=== PATIENT | male | born 1960 | race Caucasian/White ===

== ENCOUNTER 2022-01-14 09:36 | Emergency (ER) | payer SELFPAY ==
[2022-01-14] VITALS (10 sets, daily range): BP systolic 140–178; BP diastolic 88–122; PULSE 81–95; RESP 18–32; TEMP 36.6; O2SAT 87–98; BMI 22.4
--- NOTE | 2022-01-14 10:33 | ED_ITS ---
Documented by User: JESSIE Bojorquez 01/14/22 11:14 HPI - SOB/Dyspnea General: Chief Complaint: Shortness of Breath/Dyspnea Stated Complaint: Difficulty breathing Time Seen by Provider: 01/14/22 10:13 Source: patient Mode of arrival: ambulatory Limitations: no limitations History of Present Illness: HPI Narrative: Patient is a 61-year-old male here for concerns of dyspnea over the past 2 days or so. Patient tells me several years ago he had a severe case of pneumonia and was told he had permanent lung damage following this infection. Patient was an every day smoker up until a month ago when he quit. He has no known history of COPD. He states dyspnea is worse with any form of exertion. He is not having much of a cough. No other URI-like symptoms. No fevers. MD elicited complaint: shortness of breath Pertinent past history: pneumonia Onset (ago): day(s) Timing: constant Severity: moderate Exacerbating factors: exertion Relieving factors: nothing Associated symptoms: Deny abdominal pain, chest congestion, chest pain, extremity pain, fever(s), hemoptysis, nausea or vomiting Treatment prior to arrival: none Related Data: Home oxygen amount: none Review of Systems Const: Denies: fever(s), chills, body aches, fatigue or malaise Card: Denies: chest pain Resp: Reports: dyspnea; Denies: productive cough, non-productive cough, wheezing, hemoptysis or chest congestion GI: Denies: abdominal pain, nausea, vomiting or diarrhea Musc: Denies: neck pain, back pain, extremity pain or joint pain Skin/Breast: Denies: rash Neuro: Denies: headache(s), numbness in extremities, weakness in extremities or sensory changes Physical Exam Const: COMMON NORMALS: average body habitus, patient oriented x3, no limitations, healthy appearing and alert GENERAL APPEARANCE: cooperative and in distress (respiratory failure with hypoxia-satting 87% on RA upon arrival) ORIENTATION/CONSCIOUSNESS: Yes awake, Yes oriented to person, Yes oriented to place and Yes oriented to time HENMT: COMMON NORMALS: normocephalic and atraumatic HEAD & SCALP: normal to inspection, normocephalic and atraumatic Neck/C-Spine: COMMON NORMALS: full ROM, no lymphadenopathy, supple, no meningeal signs and no JVD Chest: COMMONS NORMALS: normal inspection of the chest Resp: EFFORT & INSPECTION: Yes tachypneic, Yes respiratory distress, Yes labored and Yes retractions AUSCULTATION: wheezes Cardio: COMMON NORMALS: no JVD, regular rate and regular rhythm RATE: regular rate RHYTHM: regular rhythm GI: COMMON NORMALS: Normal to inspection, nondistended, normoactive bowel sounds present, Soft to palpation and non-tender PALPATION: Yes Soft to palpation Extremity: COMMON NORMALS: capillary refill normal, no joint enlargement, no clubbing, cyanosis or edema, no calf tenderness and no pedal edema Neuro: TOSHA COMA SCALE: document GCS findings [place] coma scale eye opening: Spontaneous [place] coma scale verbal response: Orientated [place] coma scale motor response: Obey commands [place] coma scale total score: 15 COMMON NORMALS: patient oriented x3 SENSORIUM/ORIENTATION: Yes alert, Yes oriented to person, Yes oriented to place and Yes oriented to time MENINGEAL SIGNS: Yes no meningeal signs Skin: COMMON NORMALS: no rashes or lesions noted GENERAL SKIN EXAM: no rashes or lesions noted Course Vital Signs: Vital signs: Vital Signs Temperature 97.9 F 01/14/22 10:08 Pulse Rate 92 01/14/22 14:14 Respiratory Rate 18 01/14/22 14:10 Blood Pressure 144/88 01/14/22 13:57 Pulse Oximetry 97 01/14/22 14:10 MDM - SOB/Dyspnea Medical Decision Making Care transferred to Dr. Arriaga as patient will most likely require admission. Lab Data : 01/14/22 10:25 01/14/22 10:25 Labs/Radiology: Radiology Impressions Chest X-Ray 01/14/22 10:45 IMPRESSION: Findings of obstructive lung disease with central lobar emphysema. No definite acute abnormality. Lower mediastinal density may represent a small hiatal hernia. Laboratory Results WBC 10.1 10^3/uL (4.0-10.0) H 01/14/22 10:25 RBC 4.78 10^6/uL (4.1-5.3) 01/14/22 10:25 Hgb 15.5 g/dL (11.7-16.6) 01/14/22 10:25 Hct 47.6 % (42.0-52.0) 01/14/22 10:25 MCV 99.6 fl (80-94) H 01/14/22 10:25 MCH 32.4 pg (28.0-34.0) 01/14/22 10:25 MCHC 32.6 g/dL (30.0-36.0) 01/14/22 10:25 RDW 13.0 % (12.1-15.1) 01/14/22 10:25 Plt Count 280 10^3/cmm (130-400) 01/14/22 10:25 MPV 9.9 fL (7.4-10.4) 01/14/22 10:25 Neut % (Auto) 74.6 % 01/14/22 10:25 Lymph % (Auto) 12.9 % 01/14/22 10:25 Stearns % (Auto) 9.8 % 01/14/22 10:25 Eos % (Auto) 1.7 % 01/14/22 10:25 Baso % (Auto) 0.6 % 01/14/22 10:25 Neut # (Auto) 7.52 10^3/uL (1.8-7.7) 01/14/22 10:25 Lymph # (Auto) 1.3 10^3/uL (0.8-4.8) 01/14/22 10:25 Stearns # (Auto) 1.0 10^3/uL (0.2-0.9) H 01/14/22 10:25 Eos # (Auto) 0.2 10^3/uL (0.0-0.8) 01/14/22 10:25 Baso # (Auto) 0.1 10^3/uL (0.0-0.1) 01/14/22 10:25 Nucleated RBC % (auto) 0 % 01/14/22 10:25 Nucleated RBCs # 0.0 /100WBC 01/14/22 10:25 Specimen Type Arterial 01/14/22 12:04 Sample Site Radial, left 01/14/22 12:04 ABG pH 7.33 (7.35-7.45) L 01/14/22 12:04 ABG pCO2 56.0 mmHg (35-45) H 01/14/22 12:04 ABG pO2 112.0 mmHg (80.0-100.0) H 01/14/22 12:04 ABG HCO3 29.5 mmol/L (22-26) H 01/14/22 12:04 ABG O2 Saturation 97.3 01/14/22 12:04 ABG Base Excess 1.9 mmol/L (-2.0-2.0) 01/14/22 12:04 Jim Test Pos 01/14/22 12:04 A-a O2 Gradient 6.1 mmHg (5-10) 01/14/22 12:04 Hematocrit 51.3 % (42-52) 01/14/22 12:04 Hgb O2 Saturation 95.9 % (95-100) 01/14/22 12:04 Carboxyhemoglobin 1.0 %THgb (0.4-20.1) 01/14/22 12:04 Methemoglobin 0.5 % (0.4-1.5) 01/14/22 12:04 Total Hemoglobin 16.7 g/dL (14-18) 01/14/22 12:04 Sodium 140.0 mmol/L (131-143) 01/14/22 12:04 Potassium 4.4 mmol/L (3.5-5.0) 01/14/22 12:04 Glucose 105.0 mg/dL (70-115) 01/14/22 12:04 Ionized Calcium 1.2 mmol/L (1.1-1.4) 01/14/22 12:04 O2 Delivery Device Nc 01/14/22 12:04 O2 Liters/Min 3.0 % 01/14/22 12:04 FiO2 32.0 % 01/14/22 12:04 Behavioral Sciences Instructor ID glc 01/14/22 12:04 Sodium 137 mmol/L (136-145) 01/14/22 10:25 Potassium 4.4 mmol/L (3.5-5.1) 01/14/22 10:25 Chloride 98 mmol/L (98-107) 01/14/22 10:25 Carbon Dioxide 28 mmol/L (22-29) 01/14/22 10:25 Anion Gap 15.4 (5-19) 01/14/22 10:25 BUN 13 mg/dL (8-23) 01/14/22 10:25 Creatinine 0.7 mg/dL (0.7-1.2) 01/14/22 10:25 GFR Calculation 115.0 mL/min (90-130) 01/14/22 10:25 Glucose 97 mg/dL (65-115) 01/14/22 10:25 Calculated Osmolality 284 mOsm/kg (285-295) L 01/14/22 10:25 Lactic Acid 1.4 mmol/L (0.5-2.2) 01/14/22 10:25 Calcium 9.3 mg/dL (8.5-10.5) 01/14/22 10:25 Total Bilirubin 0.4 mg/dL (0.15-1.2) 01/14/22 10:25 AST 20 U/L (0-40) 01/14/22 10:25 ALT 12 U/L (0-41) 01/14/22 10:25 Alkaline Phosphatase 67 IU/L (40-130) 01/14/22 10:25 Troponin T Baseline 14 ng/L (0-15) 01/14/22 10:25 Troponin T 120 Minute 9.79 ng/L (0-15) 01/14/22 12:55 Delta Troponin T -4.21 ABS# (0-10) L 01/14/22 12:55 C-Reactive Protein 10.6 mg/L (0.0-4.9) H 01/14/22 10:25 NT-Pro-B Natriuret Pep 112 pg/mL (0-125) 01/14/22 10:25 Total Protein 7.6 g/dL (6.6-8.7) 01/14/22 10:25 Albumin 4.1 g/dL (3.5-5.2) 01/14/22 10:25 Globulin 3.5 g/dL (1.3-4.6) 01/14/22 10:25 Coronavirus 229E (PCR) Not detected (NOT DETECT) 01/14/22 10:50 SARS-CoV-2 (PCR) Not detected (NOT DETECT) 01/14/22 10:50 Discharge Plan Discharge Patient Disposition: Home Clinical Impression: Acute exacerbation of chronic obstructive airways disease Condition: Stable Prescriptions: New Symbicort 80-4.5 mcg/actuation HFA aerosol inhaler 2 inh inhalation BID Qty: 10.2 0RF Spiriva Respimat 1.25 mcg/actuation mist 2 inh inhalation DAILY Qty: 4 0RF doxycycline hyclate 100 mg capsule 100 mg PO BID 10 Days Qty: 20 0RF prednisone 20 mg tablet 20 mg PO TID Qty: 15 0RF Rx Instructions: 1 p.o. 3 times daily x3 days, 1 p.o. twice daily x2 days, 1 p.o. daily x2 d ays albuterol sulfate 90 mcg/actuation HFA aerosol inhaler 2 inh INHALATION Q4H PRN (Reason: shortness of breath or wheezing) Qty: 18 0RF No Action Primatene Mist 0.125 mg/actuation Hfa Aerosol Inhaler 1 puff INHALATION Q4H PRN (Reason: Shortness Of Breath) 0RF Rx Instructions: may repeat once after 1 minute; do not exceed 8 inhalations per 24 hrs Discharge Orders: Discharge ED (Routine); Ordered 01/14/22 Ordered By: Denzel Arriaga Other Ambulatory Orders: DME: Oxygen (Order) Location: None Selected Ordered By: Denzel Arriaga Referrals: Joshua Bradford MD [Primary Care Provider] - Patient Instructions: Opioid Safety Coding Level of Care Code ED Entry Writer for Chg Fwd Exam Comprehensive Documented by User: Denzel Arriaga, 01/14/22 15:25 HPI - SOB/Dyspnea General: Chief Complaint: Shortness of Breath/Dyspnea Stated Complaint: Difficulty breathing Time Seen by Provider: 01/14/22 10:13 History of Present Illness: HPI Narrative: Patient is a 61-year-old male here for concerns of dyspnea over the past 2 days or so. Patient tells me several years ago he had a severe case of pneumonia and was told he had permanent lung damage following this infection. Patient was an every day smoker up until a month ago when he quit. He has no known history of COPD. He states dyspnea is worse with any form of exertion. He is not having much of a cough. No other URI-like symptoms. No fevers. 61-year-old male with retractions dyspnea and denies any chest pain. Symptoms began over the last 2 days progressively worsening. Minimal cough nonproductive Physical Exam Narrative: EXAM NARRATIVE: Patient examined no change in findings compared to Antionette Morelos's note Neuro: TOSHA COMA SCALE: document GCS findings [place] coma scale total score: 15 Course Vital Signs: Vital signs: Vital Signs Temperature 97.9 F 01/14/22 10:08 Pulse Rate 92 01/14/22 14:14 Respiratory Rate 18 01/14/22 14:10 Blood Pressure 144/88 01/14/22 13:57 Pulse Oximetry 97 01/14/22 14:10 MDM - SOB/Dyspnea Medical Decision Making Care transferred to Dr. Arriaga as patient will most likely require admission. Labs reviewed and disussed with patient. He is feeling much better with his breathing. Discused options with pt. He prefers to go home, I think he can with home oxygen. Start symbicort, Spriva and alb, short ocurse of steridos and doxycycline. Recheck with pulmonology - if worsens return. Medical Records I reviewed the patient's medical records. Lab Data I reviewed the patient's lab results. : 01/14/22 10:25 01/14/22 10:25 Labs/Radiology: Radiology Impressions Chest X-Ray 01/14/22 10:45 IMPRESSION: Findings of obstructive lung disease with central lobar emphysema. No definite acute abnormality. Lower mediastinal density may represent a small hiatal hernia. Laboratory Results WBC 10.1 10^3/uL (4.0-10.0) H 01/14/22 10:25 RBC 4.78 10^6/uL (4.1-5.3) 01/14/22 10:25 Hgb 15.5 g/dL (11.7-16.6) 01/14/22 10:25 Hct 47.6 % (42.0-52.0) 01/14/22 10:25 MCV 99.6 fl (80-94) H 01/14/22 10:25 MCH 32.4 pg (28.0-34.0) 01/14/22 10:25 MCHC 32.6 g/dL (30.0-36.0) 01/14/22 10:25 RDW 13.0 % (12.1-15.1) 01/14/22 10:25 Plt Count 280 10^3/cmm (130-400) 01/14/22 10:25 MPV 9.9 fL (7.4-10.4) 01/14/22 10:25 Neut % (Auto) 74.6 % 01/14/22 10:25 Lymph % (Auto) 12.9 % 01/14/22 10:25 Stearns % (Auto) 9.8 % 01/14/22 10:25 Eos % (Auto) 1.7 % 01/14/22 10:25 Baso % (Auto) 0.6 % 01/14/22 10:25 Neut # (Auto) 7.52 10^3/uL (1.8-7.7) 01/14/22 10:25 Lymph # (Auto) 1.3 10^3/uL (0.8-4.8) 01/14/22 10:25 Stearns # (Auto) 1.0 10^3/uL (0.2-0.9) H 01/14/22 10:25 Eos # (Auto) 0.2 10^3/uL (0.0-0.8) 01/14/22 10:25 Baso # (Auto) 0.1 10^3/uL (0.0-0.1) 01/14/22 10:25 Nucleated RBC % (auto) 0 % 01/14/22 10:25 Nucleated RBCs # 0.0 /100WBC 01/14/22 10:25 Specimen Type Arterial 01/14/22 12:04 Sample Site Radial, left 01/14/22 12:04 ABG pH 7.33 (7.35-7.45) L 01/14/22 12:04 ABG pCO2 56.0 mmHg (35-45) H 01/14/22 12:04 ABG pO2 112.0 mmHg (80.0-100.0) H 01/14/22 12:04 ABG HCO3 29.5 mmol/L (22-26) H 01/14/22 12:04 ABG O2 Saturation 97.3 01/14/22 12:04 ABG Base Excess 1.9 mmol/L (-2.0-2.0) 01/14/22 12:04 Jim Test Pos 01/14/22 12:04 A-a O2 Gradient 6.1 mmHg (5-10) 01/14/22 12:04 Hematocrit 51.3 % (42-52) 01/14/22 12:04 Hgb O2 Saturation 95.9 % (95-100) 01/14/22 12:04 Carboxyhemoglobin 1.0 %THgb (0.4-20.1) 01/14/22 12:04 Methemoglobin 0.5 % (0.4-1.5) 01/14/22 12:04 Total Hemoglobin 16.7 g/dL (14-18) 01/14/22 12:04 Sodium 140.0 mmol/L (131-143) 01/14/22 12:04 Potassium 4.4 mmol/L (3.5-5.0) 01/14/22 12:04 Glucose 105.0 mg/dL (70-115) 01/14/22 12:04 Ionized Calcium 1.2 mmol/L (1.1-1.4) 01/14/22 12:04 O2 Delivery Device Nc 01/14/22 12:04 O2 Liters/Min 3.0 % 01/14/22 12:04 FiO2 32.0 % 01/14/22 12:04 Behavioral Sciences Instructor ID glc 01/14/22 12:04 Sodium 137 mmol/L (136-145) 01/14/22 10:25 Potassium 4.4 mmol/L (3.5-5.1) 01/14/22 10:25 Chloride 98 mmol/L (98-107) 01/14/22 10:25 Carbon Dioxide 28 mmol/L (22-29) 01/14/22 10:25 Anion Gap 15.4 (5-19) 01/14/22 10:25 BUN 13 mg/dL (8-23) 01/14/22 10:25 Creatinine 0.7 mg/dL (0.7-1.2) 01/14/22 10:25 GFR Calculation 115.0 mL/min (90-130) 01/14/22 10:25 Glucose 97 mg/dL (65-115) 01/14/22 10:25 Calculated Osmolality 284 mOsm/kg (285-295) L 01/14/22 10:25 Lactic Acid 1.4 mmol/L (0.5-2.2) 01/14/22 10:25 Calcium 9.3 mg/dL (8.5-10.5) 01/14/22 10:25 Total Bilirubin 0.4 mg/dL (0.15-1.2) 01/14/22 10:25 AST 20 U/L (0-40) 01/14/22 10:25 ALT 12 U/L (0-41) 01/14/22 10:25 Alkaline Phosphatase 67 IU/L (40-130) 01/14/22 10:25 Troponin T Baseline 14 ng/L (0-15) 01/14/22 10:25 Troponin T 120 Minute 9.79 ng/L (0-15) 01/14/22 12:55 Delta Troponin T -4.21 ABS# (0-10) L 01/14/22 12:55 C-Reactive Protein 10.6 mg/L (0.0-4.9) H 01/14/22 10:25 NT-Pro-B Natriuret Pep 112 pg/mL (0-125) 01/14/22 10:25 Total Protein 7.6 g/dL (6.6-8.7) 01/14/22 10:25 Albumin 4.1 g/dL (3.5-5.2) 01/14/22 10:25 Globulin 3.5 g/dL (1.3-4.6) 01/14/22 10:25 Coronavirus 229E (PCR) Not detected (NOT DETECT) 01/14/22 10:50 SARS-CoV-2 (PCR) Not detected (NOT DETECT) 01/14/22 10:50 Discharge Plan Discharge Patient Disposition: Home Clinical Impression: Acute exacerbation of chronic obstructive airways disease Condition: Stable Prescriptions: New Symbicort 80-4.5 mcg/actuation HFA aerosol inhaler 2 inh inhalation BID Qty: 10.2 0RF Spiriva Respimat 1.25 mcg/actuation mist 2 inh inhalation DAILY Qty: 4 0RF doxycycline hyclate 100 mg capsule 100 mg PO BID 10 Days Qty: 20 0RF prednisone 20 mg tablet 20 mg PO TID Qty: 15 0RF Rx Instructions: 1 p.o. 3 times daily x3 days, 1 p.o. twice daily x2 days, 1 p.o. daily x2 days albuterol sulfate 90 mcg/actuation HFA aerosol inhaler 2 inh INHALATION Q4H PRN (Reason: shortness of breath or wheezing) Qty: 18 0RF No Action Primatene Mist 0.125 mg/actuation Hfa Aerosol Inhaler 1 puff INHALATION Q4H PRN (Reason: Shortness Of Breath) 0RF Rx Instructions: may repeat once after 1 minute; do not exceed 8 inhalations per 24 hrs Discharge Orders: Discharge ED (Routine); Ordered 01/14/22 Ordered By: Denzel Arriaga Other Ambulatory Orders: DME: Oxygen (Order) Location: None Selected Ordered By: Denzel Arriaga Referrals: Joshua Bradford MD [Primary Care Provider] - Patient Instructions: Opioid Safety Coding Level of Care Code ED Entry Writer for Chg Fwd Exam Comprehensive
--- NOTE | 2022-01-14 10:45 | XR_ITS ---
WS: [id number] XR chest 1V portable [id number] REASON FOR EXAM: SOB, hypoxia FINDINGS: Mild tortuosity the thoracic aorta and normal heart size. Calcified granulomatous disease in both hemithoraces. Hyperexpansion of both lungs with flattening of the hemidiaphragms. There is also blunting of the cos tophrenic angles most likely representing pleural scarring. 2.5 cm soft tissue density projected over the lower mediastinum to the left of midline. Multiple linear densities with interspersed lucencies within the parenchyma of both lungs. No definite acute pulmonary parenchymal or pleural abnormality. XR/XR chest 1V portable [id number] IMPRESSION: Findings of obstructive lung disease with central lobar emphysema. No definite acute abnormality. Lower mediastinal density may represent a small hiatal hernia.
--- NOTE | 2022-01-14 10:46 | ECG_ITS ---
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 Measurements Intervals [place] Rate: 78 P: 75 FL: 106 QRS: 82 QRSD: 88 T: 68 QT: 390 QTc: 446 Interpretive Statements SINUS RHYTHM WITH SHORT FL INTERVAL Compared to ECG 09/07/2015 12:05:53 Sinus tachycardia no longer present Electronically Signed On 01-14-2022 17:53:31 CDT by Chon Engel M.D. [id number]
[2022-01-14 10:54] LABS: Basophils # 0.1 10^3/uL (0.0-0.1); Basophils % 0.6 %; Eosinophils # 0.2 10^3/uL (0.0-0.8); Eosinophils % 1.7 %; Hematocrit 47.6 % (42.0-52.0); Hemoglobin 15.5 g/dL (11.7-16.6); Lymphocytes # 1.3 10^3/uL (0.8-4.8); Lymphocytes % 12.9 %; Mean Corpuscular HGB Conc 32.6 g/dL (30.0-36.0); Mean Corpuscular Hemoglobin 32.4 pg (28.0-34.0); Mean Corpuscular Volume 99.6 fl (80-94); Mean Platelet Volume 9.9 fL (7.4-10.4); Monocytes % 9.8 %; Neutrophils # 7.52 10^3/uL (1.8-7.7); Neutrophils % 74.6 %; Nucleated Red Blood Cells % 0 %; Platelet Count 280 10^3/cmm (130-400); Red Blood Count 4.78 10^6/uL (4.1-5.3); White Blood Count 10.1 10^3/uL (4.0-10.0)
--- NOTE | 2022-01-14 11:07 | PC.NURSE ---
PT OXYGEN REMOVED PER PHYSICIAN INSTRUCTION. PT O2 SATS DECREASED TO 91%. XRAY REPOSITIONED PT AND O2 SATS DECREASED TO 86%. PT BECAME COOL AND CLAMMY. PT PLACED ON 3L O2 BY NS. 02 SATS ARE NOW 97%
[2022-01-14 11:22] LABS: Lactic Sepsis W/Reflex 1.4 mmol/L (0.5-2.2)
[2022-01-14 11:25] LABS: Troponin(5th) Baseline 14 ng/L (0-15)
[2022-01-14 11:34] LABS: Alanine Aminotransferase 12 U/L (0-41); Albumin Level 4.1 g/dL (3.5-5.2); Alkaline Phosphatase 67 IU/L (40-130); Aspartate Amino Transferase 20 U/L (0-40); Blood Urea Nitrogen 13 mg/dL (8-23); C Reactive Protein 10.6 mg/L (0.0-4.9); Calcium 9.3 mg/dL (8.5-10.5); Carbon Dioxide 28 mmol/L (22-29); Chloride 98 mmol/L (98-107); Creatinine Clr Calc Pharmacy 97.4508; Globulin 3.5 g/dL (1.3-4.6); Glucose 97 mg/dL (65-115); NT Pro B Type Natriuretic Pept 112 pg/mL (0-125); Osmolality Calculated 284 mOsm/kg (285-295); Sodium 137 mmol/L (136-145); Total Bilirubin 0.4 mg/dL (0.15-1.2); Total Protein 7.6 g/dL (6.6-8.7)
[2022-01-14 11:36] LABS: Anion Gap 15.4 (5-19); Potassium 4.4 mmol/L (3.5-5.1)
--- NOTE | 2022-01-14 11:43 | PC.PHAR ---
pt states he takes no rx medications-no meds pull up on ext med history
[2022-01-14] MEDS: dexamethasone 10 mg/mL INJ IM (11:48)
[2022-01-14] MEDS: albuterol 8 gm MDI 2 PUFF INHALATION (11:59)
[2022-01-14 12:13] LABS: ABG PH Result 7.33 (7.35-7.45); Alveolar-Arterial Oxygen Gradi 6.1 mmHg (5-10); Arterial Blood Gas Hematocrit 51.3 % (42-52); Base Excess ABG 1.9 mmol/L (-2.0-2.0); Blood Gas Allen Test Pos; Blood Gas Operator Identificat glc; Blood Gas Sample Site Radial, left; Blood Gas Sample Type Arterial; HCO3 ABG 29.5 mmol/L (22-26); HGB O2 Sat 95.9 % (95-100); Ionized Calcium Level - ABG 1.2 mmol/L (1.1-1.4); Methemoglobin 0.5 % (0.4-1.5); Oxygen Device NC; Oxygen Saturation ABG 97.3; Potassium Level - ABG 4.4 mmol/L (3.5-5.0); Total Hemoglobin 16.7 g/dL (14-18)
[2022-01-14 12:40] LABS: Adenovirus Not Detected (NOT DETECT); Chlamydia Pneumoniae Not Detected (NOT DETECT); Coronavirus 229E,HKU1,NL63,OC4 Not Detected (NOT DETECT); Human Metapneumovirus Not Detected (NOT DETECT); Human Rhinovirus/Enterovirus Not Detected (NOT DETECT); Influenza A Not Detected (NOT DETECT); Influenza A H1 Not Detected (NOT DETECT); Influenza A H1-2009 Not Detected (NOT DETECT); Influenza A H3 Not Detected (NOT DETECT); Influenza B Not Detected (NOT DETECT); Mycoplasma Pneumoniae Not Detected (NOT DETECT); Parainfluenza Virus Type 1 Not Detected (NOT DETECT); Parainfluenza Virus Type 2 Not Detected (NOT DETECT); Parainfluenza Virus Type 3 Not Detected (NOT DETECT); Parainfluenza Virus Type 4 Not Detected (NOT DETECT); Respiratory Syncytial Virus A Not Detected (NOT DETECT); Respiratory Syncytial Virus B Not Detected (NOT DETECT); SARS-COV-2 Not Detected (NOT DETECT)
--- NOTE | 2022-01-14 12:46 | ECG_ITS ---
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 Measurements Intervals [place] Rate: 87 P: 86 OR: 126 QRS: 92 QRSD: 90 T: 68 QT: 361 QTc: 435 Interpretive Statements SINUS RHYTHM POSSIBLE RIGHT ATRIAL ENLARGEMENT [0.25mV P WAVE] BORDERLINE RIGHT AXIS DEVIATION [QRS AXIS > 90] Compared to ECG 01/14/2022 10:25:26 Short OR interval no longer present Electronically Signed On 01-14-2022 17:57:42 CDT by Chon Engel M.D. [id number]
[2022-01-14] MEDS: ipratropium-albuterol 3 mL Neb INHALATION (14:07)
[2022-01-14 14:54] LABS: Troponin 5 2HR 9.79 ng/L (0-15)
[2022-01-14 15:03] LABS: Troponin 5 2HR Delta -4.21 ABS# (0-10)
--- NOTE | 2022-01-15 08:46 | DCPLANNER ---
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 was sent the following messages regarding follow up appointment: pt returned call - he filled out Financial Assistance forms online but doesn't know anything yet of course - instructed him to call and discuss with patient accounts how to go forward with this appt, maybe a payment plan could be set up to begin with since pt cannot afford the office visit cost at this time - pt will call back for appt when he figures out financial aspect On 01/15/22 @ 16:04 Erlinda Jane Wrote To [facility] Front Office left msg Original Note: parking garage manager had message to schedule a follow up appointment for patient with pulmonology. parking garage manager sent patients information to the front office staff at [facility]. Patients information will be printed and reviewed. Clinic will call patient with appointment information.
== END 2022-01-14 14:35 | disposition home or self-care (01) ==
PROVIDERS: Physician Assistant; Emergency Provider Family Medicine; PCP Family Medicine
DX: J44.1 Chronic obstructive pulmonary disease with (acute) exacerbation (principal); Z20.822 Contact with and (suspected) exposure to COVID-19
CPT/HCPCS: 36600; 71045; 80051; 80053; 82330; 82805; 83605; 83880; 84484; 85025; 86140; 87635; 93005; 94640; 96372; 99285; J1100; J3535